=== PATIENT | male | born 1995 | race Caucasian/White ===

== ENCOUNTER 2018-03-31 19:13 | Emergency (ER) | payer BC, OTHER ==
[2018-03-31 19:24] VITALS: BP 150/75; PULSE 118; RESP 18; TEMP 98.3
[2018-03-31] MEDS ORDERED: LIDOCAINE 1% INJ 10MG/ML (20 ML MDV) SQ STA (19:33)
--- NOTE | 2018-03-31 19:59 | ED ---
General Adult HPI - General Chief complaint: Skin/Abscess/Foreign Body Stated complaint: cyst/skin problems Time Seen by Provider: 03/31/18 19:26 Source: patient, RN notes reviewed Mode of arrival: ambulatory Limitations: no limitations - History of Present Illness Initial comments: Patient 22-year-old male presented to the emergency room today with a chief complaint of a abscess to the left side of the abdominal wall. Patient states he noticed a small polyp proximal to go. She states that increased in size the other day and started to drain when he was at work. He states he uses a total belt and he believes that this may be a cause. Patient states that it's fill back up and gotten larger again. He states it's locally tender and painful. He denies any other complaints or symptoms. States she's never had something similar in the past. - Related Data Previous Rx's Medication Instructions Recorded Sulfamethox-Tmp 800-160Mg [Bactrim 1 tab PO Q12HR #20 tab 03/31/18 DS 800-160 mg] Allergies Allergy/AdvReac Type Severity Reaction Status Date / Time No Known Allergies Allergy Verified 03/31/18 19:24 Review of Systems ROS Statement: Those systems with pertinent positive or pertinent negative responses have been documented in the HPI. ROS Other: All systems not noted in ROS Statement are negative. Past Medical History Past Medical History: No Reported History History of Any Multi-Drug Resistant Organisms: None Reported Past Surgical History: No Surgical Hx Reported Past Psychological History: No Psychological Hx Reported Smoking Status: Current every day smoker Past Alcohol Use History: Occasional Past Drug Use History: None Reported General Exam - General Exam Comments Initial Comments: General: The patient is awake and alert, in no distress, and does not appear acutely ill. Eye: Pupils are equal, round and reactive to light, extra-ocular movements are intact. No nystagmus. There is normal conjunctiva bilaterally. No signs of icterus. Ears, nose, mouth and throat: There are moist mucous membranes and no oral lesions. Neck: The neck is supple, there is no tenderness or JVD. Gastrointestinal: Abdomen is soft. There is no deep tenderness. There is an abscess located left flank area just above the belt line area measures approximate centimeter across. Musculoskeletal: Normal ROM, no tenderness. Strength 5/5. Sensation intact. Pulses equal bilaterally 2+. Neurological: A&O x 3. CN II-XII intact, There are no obvious motor or sensory deficits. Coordination appears grossly intact. Speech is normal. Psychiatric: Cooperative, appropriate mood & affect, normal judgment. Limitations: no limitations Course Vital Signs 03/31/18 19:22 Temperature 98.3 F Pulse Rate 118 H Respiratory 18 Rate Blood Pressure 150/75 O2 Sat by Pulse 100 Oximetry Procedures - Procedures Initial comment: Procedure: Incision and drainage The skin overlying the abscess was prepped with Betadine, and anesthetized with 1% lidocaine without epinephrine. A #11 scalpel was then used to incise the abscess. Some purulent material was then extracted from the lesion. Gauze dressing placed on top, The patient tolerated the procedure well. Medical Decision Making - Medical Decision Making Patient did have abscess which was drinking here in the emergency room. Patient be started on antibiotics. His vital compresses to the area. Advised following up or return here to the emergency room symptoms increase worsen. Disposition Clinical Impression: Abscess Disposition: HOME SELF-CARE Condition: Good Instructions: Abscess (ED) Additional Instructions: Please use warm compresses to the area as discussed. Please use antibiotic as prescribed. Please drink emergency room symptoms increase worsen or for any other concerns. Prescriptions: Sulfamethox-Tmp 800-160Mg [Bactrim DS 800-160 mg] 1 tab PO Q12HR #20 tab Is patient prescribed a controlled substance at d/c from ED?: No Referrals: Eleazar Keys Jr, DO [Primary Care Provider] - 1-2 days Time of Disposition: 19:59
== END 2018-03-31 20:17 | disposition home or self-care (01) ==
LOC: EC 19:13
DX: L02.211 Cutaneous abscess of abdominal wall (principal); F17.200 Nicotine dependence, unspecified, uncomplicated
CPT/HCPCS: 99283; 10060; J2001

== ENCOUNTER 2018-05-06 15:26 | Emergency (ER) | payer BC, OTHER ==
[2018-05-06] MEDS ORDERED: SODIUM CHLORIDE 0.9% 2,000 ML IV STA (16:20)
[2018-05-06] MEDS ORDERED: ACETAMINOPHEN TAB 325 MG TAB PO STA (16:21)
--- NOTE | 2018-05-06 16:28 | ED ---
Abdominal Pain HPI - General Chief Complaint: Abdominal Pain Stated Complaint: Back Pain Time Seen by Provider: 05/06/18 16:10 Source: patient Mode of arrival: ambulatory Limitations: no limitations - History of Present Illness Initial Comments: Patient is a 22-year-old male with no past medical history presenting for coughing, fevers, dysuria. Patient states that for the last 2 days, he's been having a cough which also started sore throat at that time. Shortly thereafter , he developed myalgias and stated that today, he started having right flank pain as well as dysuria. He denies any nausea/vomiting/diarrhea and states that he does have protected anal intercourse with other males but the last time he did that was approximately 2 months ago and has never had a UTI in the past. He also states that he has no reason to believe that he is HIV positive although he has not tested himself. - Related Data Home Medications Medication Instructions Recorded Confirmed Naproxen Sodium [Aleve] 440 mg PO Q12HR PRN 05/06/18 05/06/18 Allergies Allergy/AdvReac Type Severity Reaction Status Date / Time No Known Allergies Allergy Verified 05/06/18 16:20 Review of Systems ROS Statement: Those systems with pertinent positive or pertinent negative responses have been documented in the HPI. Constitutional: Positive for chills, fatigue and fever. HENT: Negative for congestion. Positive for sore throat Respiratory: Negative for chest tightness, shortness of breath and wheezing. Negative for cough Cardiovascular: Negative for chest pain and palpitations. Gastrointestinal: Negative for abdominal pain. Negative for abdominal distention , diarrhea, nausea and vomiting. Genitourinary: Positive for dysuria. Musculoskeletal: Positive for right flank pain, negative for neck pain and neck stiffness. Positive for diffuse myalgias Skin: Negative for color change. Neurological: Negative for dizziness, speech difficulty, weakness and light- headedness. Psychiatric/Behavioral: Negative for agitation and confusion. Negative for anxiety ROS Other: All systems not noted in ROS Statement are negative. Past Medical History Past Medical History: No Reported History History of Any Multi-Drug Resistant Organisms: None Reported Past Surgical History: No Surgical Hx Reported Past Psychological History: No Psychological Hx Reported Smoking Status: Current every day smoker Past Alcohol Use History: Occasional Past Drug Use History: None Reported General Exam - General Exam Comments Initial Comments: Constitutional: Pt is oriented to person, place, and time. Pt appears well- developed and well-nourished. No distress. HENT: Head: Normocephalic and atraumatic. Eyes: EOM are normal. Neck: Normal range of motion. Neck supple. Mouth: Erythema of the oropharynx with no exudates Cardiovascular: Tachycardia present, regular rhythm, S1 normal, S2 normal and normal heart sounds. Exam reveals no gallop and no friction rub. No murmur heard. Pulmonary/Chest: Effort normal and breath sounds normal. No tachypnea and no bradypnea. No respiratory distress. No wheezes or rales noted. Abdominal: Soft. Bowel sounds are normal. Pt exhibits no shifting dullness, no distension, no pulsatile liver, no fluid wave, no abdominal bruit and no ascites. There is no tenderness. There is no rigidity, no rebound, no guarding, no tenderness at McBurney's point and negative Gonzalez's sign. Musculoskeletal: Normal range of motion. Neurological: Pt is alert and oriented to person, place, and time. No cranial nerve deficit. Skin: Skin is warm and dry. No rash noted. Pt is not diaphoretic. No erythema. No pallor. Psychiatric: Pt has a normal mood and affect. Pt behavior is normal. Thought content normal. Limitations: no limitations Course Vital Signs 05/06/18 05/06/18 15:55 18:19 Temperature 101.3 F H 98.7 F Pulse Rate 115 H 88 Respiratory 20 18 Rate Blood Pressure 117/61 126/55 O2 Sat by Pulse 98 98 Oximetry - Reevaluation(s) Reevaluation #1: 05/06/18 19:47 Patient shows no evidence of leukocytosis and vital signs normalized after fluids and Tylenol. Chest x-ray is also negative for acute pathology. However , patient has been unable to provide urine sample and therefore ED stay has been extended because of this. Medical Decision Making - Medical Decision Making Laboratory studies showed that there is no significant leukocytosis or electrolyte derangements. Chest x-ray also showed no evidence of acute pathology and urinalysis was negative. Patient was given fluids as well as Tylenol and vitals normalized. Extensive discussion was had with the patient about advance imaging and it was advised that based on physical exam findings as well as laboratory studies, advance imaging such as CT of the abdomen was not warranted. However, patient was strongly cautioned that because of sexual behavior that put some at risk for HIV, he should be tested as an outpatient as his cannot be excluded based on the testing here in the emergency department. He is also advised to follow with PCP in next 1-2 days and states that he has good follow-up. He was advised to return to emergency department if the symptoms became much worse. Patient was agreeable plan. - Lab Data Result diagrams: 05/06/18 16:35 05/06/18 16:35 Lab Results 05/06/18 05/06/18 05/06/18 Range/Units 16:35 16:35 16:35 WBC 10.9 H (3.8-10.6) k/uL RBC 4.77 (4.30-5.90) m/uL Hgb 15.2 (13.0-17.5) gm/dL Hct 41.9 (39.0-53.0) % MCV 87.9 (80.0-100.0) fL MCH 31.8 (25.0-35.0) pg MCHC 36.2 (31.0-37.0) g/dL RDW 13.0 (11.5-15.5) % Plt Count 203 (150-450) k/uL Neutrophils % 77 % Lymphocytes % 13 % Monocytes % 8 % Eosinophils % 1 % Basophils % 0 % Neutrophils # 8.4 H (1.3-7.7) k/uL Lymphocytes # 1.4 (1.0-4.8) k/uL Monocytes # 0.8 (0-1.0) k/uL Eosinophils # 0.1 (0-0.7) k/uL Basophils # 0.0 (0-0.2) k/uL Sodium 136 L (137-145) mmol/L Potassium 4.0 (3.5-5.1) mmol/L Chloride 104 (98-107) mmol/L Carbon Dioxide 20 L (22-30) mmol/L Anion Gap 12 mmol/L BUN 13 (9-20) mg/dL Creatinine 0.80 (0.66-1.25) mg/dL Est GFR (CKD-EPI)AfAm >90 (>60 ml/min/1.73 sqM) Est GFR (CKD-EPI)NonAf >90 (>60 ml/min/1.73 sqM) Glucose 97 (74-99) mg/dL Calcium 9.4 (8.4-10.2) mg/dL Magnesium 1.8 (1.6-2.3) mg/dL Total Bilirubin 0.8 (0.2-1.3) mg/dL AST 24 (17-59) U/L ALT 25 (21-72) U/L Alkaline Phosphatase 74 (38-126) U/L Total Protein 7.4 (6.3-8.2) g/dL Albumin 4.4 (3.5-5.0) g/dL Lipase 77 (23-300) U/L Urine Color Urine Appearance (Clear) Urine pH (5.0-8.0) Ur Specific [place] (1.001-1.035) Urine Protein (Negative) Urine Glucose (UA) (Negative) Urine Ketones (Negative) Urine Blood (Negative) Urine Nitrite (Negative) Urine Bilirubin (Negative) Urine Urobilinogen (<2.0) mg/dL Ur Leukocyte Esterase (Negative) Heterophile Antibody (Negative) Group A Strep Rapid Negative (Negative) 05/06/18 05/06/18 Range/Units 16:35 19:12 WBC (3.8-10.6) k/uL RBC (4.30-5.90) m/uL Hgb (13.0-17.5) gm/dL Hct (39.0-53.0) % MCV (80.0-100.0) fL MCH (25.0-35.0) pg MCHC (31.0-37.0) g/dL RDW (11.5-15.5) % Plt Count (150-450) k/uL Neutrophils % % Lymphocytes % % Monocytes % % Eosinophils % % Basophils % % Neutrophils # (1.3-7.7) k/uL Lymphocytes # (1.0-4.8) k/uL Monocytes # (0-1.0) k/uL Eosinophils # (0-0.7) k/uL Basophils # (0-0.2) k/uL Sodium (137-145) mmol/L Potassium (3.5-5.1) mmol/L Chloride (98-107) mmol/L Carbon Dioxide (22-30) mmol/L Anion Gap mmol/L BUN (9-20) mg/dL Creatinine (0.66-1.25) mg/dL Est GFR (CKD-EPI)AfAm (>60 ml/min/1.73 sqM) Est GFR (CKD-EPI)NonAf (>60 ml/min/1.73 sqM) Glucose (74-99) mg/dL Calcium (8.4-10.2) mg/dL Magnesium (1.6-2.3) mg/dL Total Bilirubin (0.2-1.3) mg/dL AST (17-59) U/L ALT (21-72) U/L Alkaline Phosphatase (38-126) U/L Total Protein (6.3-8.2) g/dL Albumin (3.5-5.0) g/dL Lipase (23-300) U/L Urine Color Light Yellow Urine Appearance Clear (Clear) Urine pH 6.5 (5.0-8.0) Ur Specific [place] 1.007 (1.001-1.035) Urine Protein Negative (Negative) Urine Glucose (UA) Negative (Negative) Urine Ketones Negative (Negative) Urine Blood Negative (Negative) Urine Nitrite Negative (Negative) Urine Bilirubin Negative (Negative) Urine Urobilinogen <2.0 (<2.0) mg/dL Ur Leukocyte Esterase Negative (Negative) Heterophile Antibody Negative (Negative) Group A Strep Rapid (Negative) Disposition Clinical Impression: Fever and chills Disposition: HOME SELF-CARE Condition: Good Instructions: Fever in Adults (ED) Is patient prescribed a controlled substance at d/c from ED?: No Referrals: Eleazar Keys Jr, [Primary Care Provider] - 1-2 days Time of Disposition: 20:14
[2018-05-06 16:55] LABS: Basophils % (A) 0 %; Eosinophils # (A) 0.1 k/uL (0-0.7); Eosinophils % (A) 1 %; HCT 41.9 % (39.0-53.0); HGB 15.2 gm/dL (13.0-17.5); Lymphocytes # (A) 1.4 k/uL (1.0-4.8); Lymphocytes % (A) 13 %; MCH 31.8 pg (25.0-35.0); MCHC 36.2 g/dL (31.0-37.0); MCV 87.9 fL (80.0-100.0); Mean Platelet Volume 6.4; Monocytes # (A) 0.8 k/uL (0-1.0); Monocytes % (A) 8 %; Neutrophils # (A) 8.4 k/uL (1.3-7.7); Neutrophils % (A) 77 %; Platelet Count 203 k/uL (150-450); RBC 4.77 m/uL (4.30-5.90); WBC 10.9 k/uL (3.8-10.6)
[2018-05-06 17:04] LABS: ALT 25 U/L (21-72); AST 24 U/L (17-59); Albumin 4.4 g/dL (3.5-5.0); Alkaline Phosphatase 74 U/L (38-126); Anion Gap 12 mmol/L; Blood Urea Nitrogen 13 mg/dL (9-20); Calcium 9.4 mg/dL (8.4-10.2); Carbon Dioxide 20 mmol/L (22-30); Chloride 104 mmol/L (98-107); Glucose 97 mg/dL (74-99); Lipase 77 U/L (23-300); Magnesium 1.8 mg/dL (1.6-2.3); Sodium 136 mmol/L (137-145); Total Bilirubin 0.8 mg/dL (0.2-1.3); Total Protein 7.4 g/dL (6.3-8.2)
--- NOTE | 2018-05-06 17:50 | XR ---
EXAMINATION TYPE: XR chest 2V DATE OF EXAM: 05/06/2018 COMPARISON: NONE HISTORY: Fever and sweating TECHNIQUE: Frontal and lateral views of the chest are obtained. FINDINGS: Heart and mediastinum are normal. Lungs are clear. Diaphragm is normal. Bony thorax appear s normal. IMPRESSION: Normal chest.
[2018-05-06 18:20] VITALS: BP 126/55; PULSE 88; RESP 18; TEMP 98.7
[2018-05-06 19:52] LABS: Appearance,Urine Clear (Clear); Bilirubin,Urine Negative (Negative); Blood,Urine Negative (Negative); Color,Urine Light Yellow; Glucose,Urine (UA) Negative (Negative); Ketones,Urine Negative (Negative); Leukocyte Esterase,Urine Negative (Negative); Nitrite,Urine Negative (Negative); PH, Urine 6.5 (5.0-8.0); Protein,Urine Negative (Negative); Specific Gravity,Urine 1.007 (1.001-1.035); Urobilinogen,Urine <2.0 mg/dL (<2.0)
== END 2018-05-06 20:38 | disposition home or self-care (01) ==
LOC: EC 15:26
DX: R50.9 Fever, unspecified (principal); R05 Cough; R30.0 Dysuria; R10.9 Unspecified abdominal pain; F17.200 Nicotine dependence, unspecified, uncomplicated
CPT/HCPCS: 36415; 71046; 80053; 81003; 83690; 83735; 85025; 86308; 87081; 87430; 96360; 96361; 99284

== ENCOUNTER 2020-03-06 08:20 | Emergency (ER) | payer BC, OTHER ==
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
[2020-03-06 08:38] LABS: Glucose,Whole Blood 120 mg/dL (75-99)
[2020-03-06 08:42] LABS: Basophils % (A) 0 %; Eosinophils # (A) 0.3 k/uL (0-0.7); Eosinophils % (A) 5 %; HCT 45.9 % (39.0-53.0); HGB 15.6 gm/dL (13.0-17.5); Lymphocytes % (A) 34 %; MCH 31.6 pg (25.0-35.0); MCHC 33.9 g/dL (31.0-37.0); MCV 93.1 fL (80.0-100.0); Monocytes # (A) 0.3 k/uL (0-1.0); Monocytes % (A) 5 %; Neutrophils # (A) 3.2 k/uL (1.3-7.7); Neutrophils % (A) 54 %; Platelet Count 233 k/uL (150-450); RBC 4.94 m/uL (4.30-5.90); RDW 12.6 % (11.5-15.5)
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
[2020-03-06 08:49] LABS: ALT 16 U/L (4-49); AST 29 U/L (17-59); African American GFR (CKD) >90 (>60 ml/min/1.73 sqM); Albumin 4.3 g/dL (3.5-5.0); Alcohol <10 mg/dL; Alkaline Phosphatase 59 U/L (38-126); Amylase 70 U/L (30-110); Anion Gap 8 mmol/L; Blood Urea Nitrogen 15 mg/dL (9-20); Calcium 9.2 mg/dL (8.4-10.2); Carbon Dioxide 22 mmol/L (22-30); Chloride 110 mmol/L (98-107); Glucose 110 mg/dL (74-99); Non-African American GFR(CKD) >90 (>60 ml/min/1.73 sqM); Sodium 140 mmol/L (137-145); Total Bilirubin 0.3 mg/dL (0.2-1.3); Total Protein 7.2 g/dL (6.3-8.2)
[2020-03-06 08:56] LABS: Prothrombin Time 10.2 sec (9.0-12.0)
[2020-03-06 08:59] LABS: Creatine Kinase 145 U/L (55-170)
[2020-03-06] MEDS ORDERED: DIPH,PERTUS(ACELL)TETVAC-LF 0.5 ML VIAL IM ONE (09:01)
[2020-03-06 09:12] LABS: Creatine Kinase MB 0.5 ng/mL (0.0-2.4); Troponin I <0.012 ng/mL (0.000-0.034)
[2020-03-06 09:15] LABS: Partial Thromboplastin Time 21.6 sec (22.0-30.0)
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
[2020-03-06] MEDS ORDERED: MORPHINE SULFATE 2 MG/ML SYRINGE IVP STA (09:17)
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
[2020-03-06 09:41] VITALS: RESP 16; TEMP 97.9
[2020-03-06 10:35] VITALS: BP 140/84; PULSE 72
[2020-03-06 10:39] LABS: Appearance,Urine Clear (Clear); Bacteria,Urine Rare /hpf; Bilirubin,Urine Negative (Negative); Blood,Urine Trace (Negative); Color,Urine Light Yellow; Glucose,Urine (UA) Negative (Negative); Ketones,Urine Negative (Negative); Leukocyte Esterase,Urine Negative (Negative); Mucus,Urine Rare /hpf; Nitrite,Urine Negative (Negative); Protein,Urine Trace (Negative); RBC,Urine 8 /hpf (0-5); Urobilinogen,Urine <2.0 mg/dL (<2.0); WBC,Urine 2 /hpf (0-5)
[2020-03-06 10:46] LABS: Urn Cannabinoid Scrn Not Detected (NotDetected)
[2020-03-06 10:47] LABS: Amphetamine Screen,Urine Not Detected (NotDetected); Barbiturate Screen,Urine Not Detected (NotDetected); Benzodiazepines Screen,Urine Not Detected (NotDetected); Cocaine Screen,Urine Not Detected (NotDetected); Methadone Screen, Urine Not Detected (NotDetected); Opiate Screen,Urine Not Detected (NotDetected); Oxycodone Screen, Urine Not Detected (NotDetected); Phencyclidine Screen,Urine Not Detected (NotDetected); Tricyclic Antidepressant,Urine Not Detected (NotDetected)
== END 2020-03-06 10:25 | disposition home or self-care (01) ==
LOC: SUPCPDRO 08:20 → EC 08:20
DX: S20.419A Abrasion of unspecified back wall of thorax, initial encounter (principal); S51.031A Puncture wound without foreign body of right elbow, initial encounter; F17.200 Nicotine dependence, unspecified, uncomplicated; Z23 Encounter for immunization; V29.9XXA Motorcycle rider (driver) (passenger) injured in unspecified traffic accident, initial encounter; Y92.410 Unspecified street and highway as the place of occurrence of the external cause
CPT/HCPCS: 90471; 96374; 99285; 36415; 93005; 86900; 86901; 80053; 82150; 82550; 82553; 83605; 83690; 84484; 85025; 85610; 85730; 86850; 81001; 80306; 80320; 72170; 71045; 72125; 70450; 71260; 74177; 90715; J2270; Q9967

== ENCOUNTER 2021-02-08 22:48 | Emergency (ER) | payer OTHER ==
[2021-02-08 23:28] VITALS: BP 124/75; PULSE 85; RESP 16; TEMP 97.9
[2021-02-08] MEDS ORDERED: DEXAMETHASONE SOD PHOSPHATE 10 MG/ML 1 ML VIAL IM STA (23:50)
[2021-02-08] MEDS ORDERED: FAMOTIDINE 20 MG TAB PO STA (23:50)
--- NOTE | 2021-02-08 23:50 | ED ---
Skin/Abscess/FB HPI - General Chief complaint: Skin/Abscess/Foreign Body Stated complaint: Allergic reaction to bee stings Time Seen by Provider: 02/08/21 23:39 Source: patient, family, RN notes reviewed Mode of arrival: wheelchair Limitations: no limitations - History of Present Illness Initial comments: 25-year-old male patient presents to the emergency room with his after being stung by a bee around 9:00 this evening to his right lower leg. Patient states that it started today. She said he put baking soda on it with a Band-Aid and then took a Zyrtec. The redness has increased and become swollen and tender to the touch so he came to the emergency room. Patient states also here he felt a little nauseated but no vomiting. Patient states the nausea has resolved at this point. He has no shortness of breath. Patient has no history of anaphylaxis has been started before without any problems. Patient is a pack a day smoker but denies alcohol or drug use. Oxygen saturation 98%, heart rate 85, blood pressure 124/75. MD complaint: insect bite/sting ( Stung by a bee at 2100) -: hour(s) (2 and half hours) Location: RLE (Proximal tibia) Severity scale (1-10): 7 Quality: constant Associated symptoms: nausea (Resolved now) Treatments Prior to Arrival: other (Zyrtec and baking soda) - Related Data Home Medications Medication Instructions Recorded Confirmed No Known Home Medications 03/06/20 03/06/20 Allergies Allergy/AdvReac Type Severity Reaction Status Date / Time No Known Allergies Allergy Verified 02/08/21 23:28 Review of Systems ROS Statement: Those systems with pertinent positive or pertinent negative responses have been documented in the HPI. ROS Other: All systems not noted in ROS Statement are negative. Past Medical History Past Medical History: No Reported History History of Any Multi-Drug Resistant Organisms: None Reported Past Surgical History: No Surgical Hx Reported Past Psychological History: No Psychological Hx Reported Smoking Status: Current every day smoker Past Alcohol Use History: Occasional Past Drug Use History: None Reported General Exam Limitations: no limitations General appearance: alert, in no apparent distress Head exam: Present: atraumatic, normocephalic, normal inspection Eye exam: Present: normal appearance, PERRL, EOMI, conjunctival injection. Absent: scleral icterus, periorbital swelling ENT exam: Present: normal exam, normal oropharynx, mucous membranes moist Neck exam: Present: normal inspection, full ROM. Absent: tenderness, meningismus, lymphadenopathy, thyromegaly Respiratory exam: Present: normal lung sounds bilaterally. Absent: respiratory distress, wheezes, rales, rhonchi, stridor, chest wall tenderness, accessory muscle use, decreased breath sounds Cardiovascular Exam: Present: regular rate, normal rhythm, normal heart sounds. Absent: systolic murmur, diastolic murmur, rubs, gallop, clicks GI/Abdominal exam: Present: soft, normal bowel sounds. Absent: distended, tenderness, guarding, rebound, rigid Right Lower Leg exam: Present: full ROM, swelling, erythema. Absent: laceration, ecchymosis, deformity, crepitus, dislocation Ankle exam: Present: normal inspection Back exam: Present: normal inspection, full ROM. Absent: tenderness, CVA tenderness (R), CVA tenderness (L), muscle spasm, paraspinal tenderness, vertebral tenderness Neurological exam: Present: alert, oriented X3, CN II-XII intact Psychiatric exam: Present: normal affect, normal mood Skin exam: Present: warm, dry, intact, normal color. Absent: rash Course Vital Signs 02/08/21 23:25 Temperature 97.9 F Pulse Rate 85 Respiratory 16 Rate Blood Pressure 124/75 O2 Sat by Pulse 98 Oximetry Medical Decision Making - Medical Decision Making Patient was stung by a bee and having a histamine response, inflammation and redness to right lower extremity. There is no systemic response, no anaphylaxis. Lungs are clear, no wheezing, no nausea or vomiting, no facial sw elling. Patient given Decadron and Pepcid. Patient took a Zyrtec prior to arrival. Patient feeling better and ready to go home and will be discharged home. Case discussed with Dr. Joyner, who is agreeable to this plan of care Disposition Clinical Impression: Insect bite or sting Disposition: HOME SELF-CARE Condition: Good Instructions (If sedation given, give patient instructions): Insect Bite or Sting (ED) Additional Instructions: Take Zyrtec daily and follow up with primary care doctor as needed. Is patient prescribed a controlled substance at d/c from ED?: No Referrals: Eleazar Keys Jr, [Primary Care Provider] - 1-2 days Time of Disposition: 00:34
== END 2021-02-09 00:41 | disposition home or self-care (01) ==
LOC: EC 22:48
DX: T63.441A Toxic effect of venom of bees, accidental (unintentional), initial encounter (principal); M79.89 Other specified soft tissue disorders; F17.200 Nicotine dependence, unspecified, uncomplicated
CPT/HCPCS: 99282; 96372; J1100

== ENCOUNTER 2024-08-02 13:51 | Emergency (ER) | payer BC, OTHER ==
--- NOTE | 2024-08-02 14:29 | ED ---
Fever HPI - General Chief Complaint: Fever Stated Complaint: Fever Time Seen by Provider: 08/02/24 14:27 Source: patient, RN notes reviewed Mode of arrival: ambulatory Limitations: no limitations - History of Present Illness Initial Comments: 28 year old male presenting to the ER with a chief complaint of fever. Patient reports for the past 2 days he has been having high fevers up to 104. He has been taking [id number] Tylenol, ibuprofen and DayQuil/NyQuil with relief of fever. He also is reporting a sore throat and headache. He denies any chest pain, shortness of breath/wheezing, abdominal pain, nausea or vomiting. He does report 1 episode of diarrhea this morning. Patient has no significant past medical history. - Related Data Home Medications Medication Instructions Recorded Confirmed No Known Home Medications 03/06/20 03/06/20 Allergies Allergy/AdvReac Type Severity Reaction Status Date / Time No Known Allergies Allergy Verified 08/02/24 13:58 Review of Systems ROS Statement: Those systems with pertinent positive or pertinent negative responses have been documented in the HPI. ROS Other: All systems not noted in ROS Statement are negative. Past Medical History Past Medical History: No Reported History History of Any Multi-Drug Resistant Organisms: None Reported Past Surgical History: No Surgical Hx Reported Past Psychological History: No Psychological Hx Reported Smoking Status: Vaper Past Alcohol Use History: Occasional Past Drug Use History: None Reported General Exam Limitations: no limitations General appearance: alert, in no apparent distress ENT exam: Present: normal exam, mucous membranes moist (Bilateral tonsils are erythematous and edematous white exudate present right tonsil), TM's normal bilaterally (erythematous) Neck exam: Present: lymphadenopathy (Right submandibular) Respiratory exam: Present: normal lung sounds bilaterally. Absent: respiratory distress, wheezes, rales, rhonchi, stridor Cardiovascular Exam: Present: normal rhythm, tachycardia, normal heart sounds GI/Abdominal exam: Present: soft, normal bowel sounds. Absent: distended, tenderness, guarding, rebound, rigid Neurological exam: Present: alert, oriented X3, CN II-XII intact Skin exam: Present: warm, intact, normal color, diaphoretic (mild). Absent: rash Course Vital Signs 08/02/24 13:57 Temperature 102.6 F H Pulse Rate 118 H Respiratory 22 Rate Blood Pressure 153/73 O2 Sat by Pulse 98 Oximetry Medical Decision Making - Medical Decision Making Was pt. sent in by a medical professional or institution (SANJU Shetty, [employer], urgent care, hospital, or retirement...) When possible be specific @ -No Did you speak to anyone other than the patient for history (EMS, parent, family, police, friend...)? What history was obtained from this source @ -No Did you review nursing and triage notes (agree or disagree)? Why? @ -I reviewed and agree with nursing and triage notes Were old charts reviewed (outside hosp., previous admission, EMS record, old EKG, old radiological studies, urgent care reports/EKG's, retirement records)? Report findings @ -No old charts were reviewed Differential Diagnosis (chest pain, altered mental status, abdominal pain women, abdominal pain men, vaginal bleeding, weakness, fever, dyspnea, syncope, headache, dizziness, GI bleed, back pain, seizure, CVA, palpatations, mental health, musculoskeletal)? @ -COVID, RSV, influenza, viral sinusitis, pneumonia this list is not meant to be all-inclusive EKG interpreted by me (3pts min.). @ -None done X-rays interpreted by me (1pt min.). @ -None done CT interpreted by me (1pt min.). @ -None done U/S interpreted by me (1pt. min.). @ -None done What testing was considered but not performed or refused? (CT, X-rays, U/S, labs)? Why? @ -None What meds were considered but not given or refused? Why? @ -None Did you discuss the management of the patient with other professionals (professionals i.e. SANJU Shetty, [employer], lab, RT, psych nurse, social studies teacher, marketing senior recruiter, teacher, community service officer, case managers)? Give summary @ -No Was smoking cessation discussed for >3mins.? @ -No Was critical care preformed (if so, how long)? @ -No Were there social determinants of health that impacted care today? How? (Homelessness, low income, unemployed, alcoholism, drug addiction, transportation, low edu. Level, literacy, decrease access to med. care, [facility], rehab)? @ -No Was there de-escalation of care discussed even if they declined (Discuss DNR or withdrawal of care, Hospice)? DNR status @ -No What co-morbidities impacted this encounter? (DM, HTN, Smoking, COPD, CAD, Cancer, CVA, ARF, Chemo, Hep., AIDS, mental health diagnosis, sleep apnea, morbid obesity)? @ -None Was patient admitted / discharged? Hospital course, mention meds given and route, prescriptions, significant lab abnormalities, going to OR and other pertinent info. @ -Discharged. 28 year old male presenting to the ER with a chief complaint of fevers and sore throat. Patient is febrile upon arrival at 102.6F and tachycardic at 118 which is likely related to fever. Vitals otherwise stable. Patient in no signs of acute distress. Patient is mildly diaphoretic. Exam remarkable for erythematous edematous bilateral tonsils with white exudate present on right tonsil. Lymphadenopathy to right submandibular lymph node. Viral swabs negative. Strep negative. Chest x-ray negative. Patient given p.o. ibuprofen and acetaminophen for fever control in the ER, with improvement to 100.7 at discharge. Upon reevaluation, patient resting comfortably in exam room no signs of acute distress. Results discussed with patient, all questions answered. Strict return parameters discussed. Patient discharged in stable condition with follow-up to PCP. Patient verbally expressed understanding and agreement with care plan. Case discussed with ED attending, Dr. Pena. Undiagnosed new problem with uncertain prognosis? @ -No Drug Therapy requiring intensive monitoring for toxicity (Heparin, Nitro, Insulin, Cardizem)? @ -No Were any procedures done? @ -No Diagnosis/symptom? @ -Viral pharyngitis/fever Acute, or Chronic, or Acute on Chronic? @ -Acute Uncomplicated (without systemic symptoms) or Complicated (systemic symptoms)? @ -Uncomplicated Side effects of treatment? @ -No Exacerbation, Progression, or Severe Exacerbation? @ -No Poses a threat to life or bodily function? How? (Chest pain, [place], [place], pneumonia, PE, COPD, DKA, ARF, appy, cholecystitis, CVA, Diverticulitis, Homicidal, Suicidal, threat to staff... and all critical care pts) @ -No - Lab Data Lab Results 08/02/24 08/02/24 Range/Units 14:27 14:27 Influenza Type A (PCR) Not Detected (Not Detectd) Influenza Type B (PCR) Not Detected (Not Detectd) RSV (PCR) Not Detected (Not Detectd) SARS-CoV-2 (PCR) Not Detected (Not Detectd) Group A Strep (PCR) NOT DETECTED (Not Detectd) - Radiology Data Radiology results: report reviewed, image reviewed Disposition Clinical Impression: Viral pharyngitis, Fever Disposition: HOME SELF-CARE Condition: Stable Instructions (If sedation given, give patient instructions): Fever in Adults (ED) Additional Instructions: Take [id number]-ofuzzhx ibuprofen and Tylenol for fever control. Follow-up with PCP in the next 1 to 2 days. Return to the ER for any new or worsening concerns. Is patient prescribed a controlled substance at d/c from ED?: No Referrals: Eleazar Keys Jr, [Primary Care Provider] - 1-2 days Time of Disposition: 15:20
[2024-08-02] MEDS: ACETAMINOPHEN TAB 500 MG TAB PO STA (14:30)
[2024-08-02] MEDS: IBUPROFEN 800 MG TAB PO STA (14:30)
--- NOTE | 2024-08-02 14:51 | XR ---
EXAMINATION TYPE: XR chest 2V DATE OF EXAM: 08/02/2024 2:38 PM COMPARISON: None. CLINICAL INDICATION: Male, 28 years old with history of fever, TECHNIQUE: XR chest 2V view(s) obtained. FINDINGS: The heart size is normal. The pulmonary vasculature is normal. The lungs are clear. IMPRESSION: 1. No acute pulmonary process. [facility], , 08/02/2024 2:48 PM
[2024-08-02 15:26] VITALS: BP 148/78; PULSE 103; RESP 18; TEMP 100.7
== END 2024-08-02 15:29 | disposition home or self-care (01) ==
LOC: EC 13:51
DX: J02.8 Acute pharyngitis due to other specified organisms (principal); B97.89 Other viral agents as the cause of diseases classified elsewhere; F17.290 Nicotine dependence, other tobacco product, uncomplicated
CPT/HCPCS: 71046; 87636; 87651; 99283